=== PATIENT | male | born 1960 | race African-American/Black ===

== ENCOUNTER 2016-12-09 02:52 | Emergency (ER) | payer MEDICARE ==
[~2016-12-09] VITALS: Ht 172.7 cm; Wt 88.0 kg
[2016-12-09 03:19] VITALS: BP 146/101
== END 2016-12-09 03:57 | disposition home or self-care (01) ==
LOC: ED 03:30
DX: M25.562 Pain in left knee (principal); M54.9 Dorsalgia, unspecified; G89.29 Other chronic pain
CPT/HCPCS: 99283

== ENCOUNTER 2019-08-18 07:39 | Emergency (ER) | payer MEDICARE, OTHER ==
[~2019-08-18] VITALS: Ht 172.7 cm; Wt 90.0 kg
--- NOTE | 2019-08-18 08:04 | NUR ---
PT TO ROOM 19 W/ C/O LOWER BACK AND KNEE PAIN BASELINE. PT ALSO C/O ABD PAIN THROUGHOUT, DIARRHEA X 2 STARTED THIS AM. PT ALSO C/O HEMATURIA STARTED 2 DAYS AGO. PT C/O NAUSEA. C/O FEVERS. PT RESTING ON GURNEY. NADN. VSS. WARM BLANKET PROVIDED. ERP DR. TOMLIN AT BEDSIDE. PT AWARE OF NEED FOR UA/STOOL SAMPLE IF ABLE. PT STATES HE CANNOT PROVIDE SAMPLE OF EITHER.
[2019-08-18] MEDS ORDERED: KETOROLAC 30 MG/1 ML ONE (08:58)
[2019-08-18] MEDS ORDERED: KETOROLAC 30 MG/1 ML IM ONE (09:00)
--- NOTE | 2019-08-18 09:03 | NUR ---
PT AWARE OF NEED FOR UA AND STOOL SAMPLE. REFUSING TO PROVIDE BOTH AT THIS TIME. REFUSING STRAIGHT CATH. PT RESTING ON MAXIME. EMILY. VSS.
[2019-08-18 09:23] LABS: BASOPHILS # (AUTO) 0.02 x10^3/uL (0-0.1); BASOPHILS % (AUTO) 0 % (0-1); EOSINOPHILS # (AUTO) 0.11 x10^3/uL (0-0.4); EOSINOPHILS % (AUTO) 2 % (1-7); LYMPHOCYTES # (AUTO) 1.55 x10^3/uL (1-3.4); LYMPHOCYTES % (AUTO) 21 % (22-44); MD NO; MEAN CORPUSCULAR HEMOGLOBIN 33.2 pg (27.5-34.5); MEAN CORPUSCULAR HGB CONC 34.2 g/dL (33.2-36.2); MEAN CORPUSCULAR VOLUME 97.1 fL (81-97); MEAN PLATELET VOLUME 7.3 fL (7.4-10.4); MONOCYTES # (AUTO) 0.62 x10^3/uL (0.2-0.8); MONOCYTES % (AUTO) 8 % (2-9); NEUTROPHILS # (AUTO) 5.08 x10^3/uL (1.8-6.8); NEUTROPHILS % (AUTO) 69 % (42-75); PLATELET COUNT 233 x10^3/uL (130-400)
--- NOTE | 2019-08-18 09:27 | NUR ---
UA COLLECTED, LABELED, AND SENT TO LAB. PT STATES HE CANNOT PROVIDE STOOL SAMPLE AT THIS TIME.
[2019-08-18 09:32] LABS: ALANINE AMINOTRANSFERASE 62 U/L (12-78); ALBUMIN 3.6 g/dL (3.4-5.0); ANION GAP 5 mmol/L (5-15); CALCIUM 8.9 mg/dL (8.5-10.1); CHLORIDE 103 mmol/L (98-107); CREATININE 1.31 mg/dL (0.7-1.3)
[2019-08-18 09:32] LABS: RAPID INFLUENZA A Negative (Negative); RAPID INFLUENZA B Negative (Negative)
[2019-08-18 09:34] LABS: ALKALINE PHOSPHATASE 48 U/L (45-117); BILIRUBIN,TOTAL 1.6 mg/dL (0.2-1.0); TOTAL PROTEIN 7.4 g/dL (6.4-8.2)
[2019-08-18 09:38] LABS: CULTURE INDICATED? NO; MICROSCOPIC NOT IND
--- NOTE | 2019-08-18 09:47 | NUR ---
PT CHART REVIEWED AND PLACED FOR RECHECK.
[2019-08-18 10:01] VITALS: BP 138/91
--- NOTE | 2019-08-18 10:01 | NUR ---
PT RESTING ON GURNEY. NADN. KNIGHT.
--- NOTE | 2019-08-18 10:17 | NUR ---
PT CHART REVIEWED AND PLACED FOR RECHECK.
--- NOTE | 2019-08-18 10:40 | NUR ---
PT REQUESTING TO SEE SW. MESSAGE LEFT FOR SW. PT AWARE OF POC FOR DC AFTER PT SEES SW.
--- NOTE | 2019-08-18 11:31 | NUR ---
Eulogio RN: Pt given written & verbal prescription, discharge & follow-up instructions, pt verbalized comprehension of instructions. Pt is awaiting social work consultation, then pt will depart ED. No IV to D/C.
--- NOTE | 2019-08-18 12:14 | NUR ---
SW ATTEMPTED TO TALK W/ PT. PT NO LONGER IN ROOM. ROOM CLEAN. PERSONAL BELONGINGS GONE.
== END 2019-08-18 12:15 | disposition home or self-care (01) ==
LOC: ED 09:31
DX: R10.84 Generalized abdominal pain (principal); R11.2 Nausea with vomiting, unspecified; R19.7 Diarrhea, unspecified; F17.200 Nicotine dependence, unspecified, uncomplicated
CPT/HCPCS: 36415; 71046; 80053; 81003; 83690; 85025; 87400; 96372; 99284; J1885